=== PATIENT | female | born 1955 | race Caucasian/White ===

== ENCOUNTER 2018-04-10 23:24 | Emergency (ER) | payer SELFPAY ==
[~2018-04-10] VITALS: Ht 142.2 cm; Wt 73.0 kg
[2018-04-10 23:34] VITALS: BP 195/101
== END 2018-04-11 00:30 | disposition left against medical advice (07) ==
LOC: ER 23:24
DX: Z53.21 Procedure and treatment not carried out due to patient leaving prior to being seen by health care provider (principal)